=== PATIENT | male | born 1965 | race Two or more races ===

== ENCOUNTER 2020-10-27 19:52 | Inpatient (IN) | payer OTHER ==
[~2020-10-27] VITALS: Ht 165.1 cm; Wt 90.8 kg
[2020-10-27 20:26] LABS: Basophils # (auto) 0 10 ^3/uL (0-0.2); Basophils % (auto) 0.7 % (0.0-2.0); Eosinophils # (auto) 0.5 10 ^3/uL (0-0.8); Eosinophils % (auto) 6.4 % (0.0-7.0); Hematocrit 40.7 % (41.0-53.0); Hemoglobin 13.7 g/dL (13.5-17.5); Lymphocytes # (auto) 1.2 10 ^3/uL (0.4-5.4); Lymphocytes % (auto) 16.6 % (10.0-50.0); Mean Corpuscular Hemoglobin 31.2 pg (28.0-32.0); Mean Corpuscular Hgb Conc. 33.6 g/dL (32.0-36.0); Monocytes # (auto) 0.6 10 ^3/uL (0-1.3); Neutrophils # (auto) 4.9 10 ^3/uL (1.6-8.6); Neutrophils % (auto) 68.3 % (37.0-80.0); Nucleated Red Blood Cells % 0.1 %; Red Blood Cells 4.38 10^6/uL (4.5-5.90); Red Cell Distribution Width 14.7 % (11.8-14.3); White Blood Cell 7.1 10^3/uL (4.4-10.8)
[2020-10-27] MEDS ORDERED: methylPREDNISolone SOD SUCC 125 MG/2 ML VL IV ONE (20:30)
[2020-10-27] MEDS ORDERED: IPRATROPIUM BROM 0.5 MG/2.5ML INH SOL NEB ONE (20:30)
[2020-10-27] MEDS ORDERED: ALBUTEROL SULF 2.5 MG/0.5ML(0.5%) NEB SOLN NEB ONE (20:30)
[2020-10-27 20:41] LABS: Albumin 3.5 g/dL (3.4-5.0); Calcium 8.3 mg/dL (8.5-10.1); Potassium 4.1 mmol/L (3.5-5.1)
[2020-10-27 20:43] LABS: BUN/Creatinine Ratio 16.3
[2020-10-27 20:44] LABS: INR 1.08 (0.9-1.15); Partial Thromboplastin Time 26.3 sec (23.0-31.2)
[2020-10-27 20:48] LABS: Bilirubin, Total 0.5 mg/dL (0.2-1.0); Total Protein 7.4 g/dL (6.4-8.2)
[2020-10-27] MEDS ORDERED: NITROGLYCERIN 0.4 MG SL TAB SL PRN (21:00)
[2020-10-27] MEDS ORDERED: MORPHINE SULFATE INJECTION 2 MG/ML SYRG IV PRN (21:00)
[2020-10-27] MEDS ORDERED: ONDANSETRON HCL 4 MG/2 ML VIAL IV PRN (21:00)
[2020-10-27] MEDS ORDERED: TEMAZEPAM 15 MG CAP PO PRN (21:00)
[2020-10-27] MEDS ORDERED: FUROSEMIDE 40 MG/4 ML VIAL ONE (22:30)
[2020-10-27] MEDS ORDERED: FUROSEMIDE 40 MG/4 ML VIAL IV ONE (22:30)
[2020-10-27] MEDS: methylPREDNISolone SOD SUCC 40 MG/ML VL IV SCH (22:33)
[2020-10-27] MEDS: CARVEDILOL 12.5 MG TAB PO SCH (22:35)
[2020-10-27 22:50] VITALS: BP 138/106
[2020-10-28] MEDS: IPRATROPIUM BROM 0.5 MG/2.5ML INH SOL NEB PRN ×3 (00:51→19:41)
[2020-10-28] MEDS: ALBUTEROL SULF 2.5 MG/0.5ML(0.5%) NEB SOLN NEB PRN ×3 (00:51→19:41)
[2020-10-28] MEDS: ACETAMINOPHEN 325 MG TAB PO PRN ×2 (01:12→08:33)
[2020-10-28 05:20] VITALS: BP 114/78
[2020-10-28] MEDS: FUROSEMIDE 20 MG/2 ML VIAL IV SCH ×2 (05:31→18:42)
[2020-10-28] MEDS ORDERED: FUROSEMIDE 40 MG TAB PO SCH (06:00)
[2020-10-28 07:05] LABS: Basophils # (auto) 0 10 ^3/uL (0-0.2); Basophils % (auto) 0.2 % (0.0-2.0); Eosinophils # (auto) 0 10 ^3/uL (0-0.8); Hematocrit 40.6 % (41.0-53.0); Hemoglobin 13.6 g/dL (13.5-17.5); Lymphocytes # (auto) 0.3 10 ^3/uL (0.4-5.4); Lymphocytes % (auto) 4.2 % (10.0-50.0); Mean Corpuscular Hemoglobin 30.9 pg (28.0-32.0); Mean Corpuscular Hgb Conc. 33.5 g/dL (32.0-36.0); Mean Corpuscular Volume 92.1 fL (80.0-100.0); Monocytes # (auto) 0.1 10 ^3/uL (0-1.3); Monocytes % (auto) 0.8 % (0.0-12.0); Neutrophils # (auto) 5.9 10 ^3/uL (1.6-8.6); Neutrophils % (auto) 94.8 % (37.0-80.0); Nucleated Red Blood Cells % 0.1 %; Red Blood Cells 4.41 10^6/uL (4.5-5.90); Red Cell Distribution Width 14.6 % (11.8-14.3); White Blood Cell 6.2 10^3/uL (4.4-10.8)
[2020-10-28 07:08] LABS: Anion Gap 6 (5-15); Blood Urea Nitrogen 31 mg/dL (7-18); Calcium 8.4 mg/dL (8.5-10.1); Carbon Dioxide 28 mmol/L (21-32); Chloride 104 mmol/L (98-107); Glucose 168 mg/dL (74-106); Potassium 3.6 mmol/L (3.5-5.1); Sodium 138 mmol/L (136-145)
[2020-10-28 07:13] LABS: BUN/Creatinine Ratio 24.4; GFR African American 76 mL/min; GFR Non-African American 63 mL/min
[2020-10-28 09:00] VITALS: BP 138/94
[2020-10-28] MEDS: CARVEDILOL 12.5 MG TAB PO SCH ×3 (10:24→22:00)
[2020-10-28] MEDS: LOSARTAN POTASSIUM 50 MG TAB PO SCH (10:24)
[2020-10-28] MEDS: methylPREDNISolone SOD SUCC 40 MG/ML VL IV SCH ×2 (10:24→21:25)
[2020-10-28] MEDS: PANTOPRAZOLE 40 MG TAB PO SCH (10:24)
[2020-10-28] MEDS ORDERED: HYDROcodone-ACET 5/325MG TAB PO PRN (12:30)
[2020-10-28 13:00] VITALS: BP 116/62
[2020-10-28 17:00] VITALS: BP 113/70
[2020-10-28 20:50] LABS: Urine Bacteria NONE SEEN /hpf (None Seen); Urine Blood Negative /uL (Negative); Urine Specific Gravity 1.016 (1.001-1.035); Urine WBC <1 /hpf (0 - 3)
[2020-10-28 22:00] VITALS: BP 110/65
[2020-10-28] MEDS ORDERED: guaiFENesin-DM 100/10mg/5ml SYR PO PRN (23:00)
[2020-10-29 05:00] VITALS: BP 116/65
[2020-10-29] MEDS: FUROSEMIDE 20 MG/2 ML VIAL IV SCH (05:55)
[2020-10-29 07:45] LABS: Hematocrit 37.3 % (41.0-53.0); Hemoglobin 12.5 g/dL (13.5-17.5); Mean Corpuscular Hemoglobin 31.1 pg (28.0-32.0); Mean Corpuscular Hgb Conc. 33.6 g/dL (32.0-36.0); Mean Corpuscular Volume 92.5 fL (80.0-100.0); Red Blood Cells 4.03 10^6/uL (4.5-5.90); Red Cell Distribution Width 14.3 % (11.8-14.3); White Blood Cell 13.2 10^3/uL (4.4-10.8)
[2020-10-29 07:49] LABS: Basophils % (manual) 0 (0.0-2.0); Blast Cells 0; Eosinophils % (manual) 0 (0-7); Metamyelocytes % 0; Myelocytes % 0; Promyelocytes % 0; Reactive Lymphocytes 0
[2020-10-29 07:56] LABS: Chloride 102 mmol/L (98-107); Potassium 3.8 mmol/L (3.5-5.1); Sodium 138 mmol/L (136-145)
[2020-10-29 08:09] LABS: Alanine Aminotransferase 26 U/L (16-61); Albumin 3.2 g/dL (3.4-5.0); Alkaline Phosphatase 75 U/L (45-117); Anion Gap 6 (5-15); Aspartate Aminotransferase 16 U/L (15-37); BUN/Creatinine Ratio 24.6; Bilirubin, Total 0.7 mg/dL (0.2-1.0); Blood Urea Nitrogen 30 mg/dL (7-18); Calcium 8.1 mg/dL (8.5-10.1); Carbon Dioxide 30 mmol/L (21-32); GFR African American 80 mL/min; GFR Non-African American 66 mL/min; Glucose 155 mg/dL (74-106); Total Protein 6.6 g/dL (6.4-8.2)
[2020-10-29 09:00] VITALS: BP 108/54
[2020-10-29] MEDS: methylPREDNISolone SOD SUCC 40 MG/ML VL IV SCH (09:02)
[2020-10-29] MEDS: CARVEDILOL 12.5 MG TAB PO SCH (09:03)
[2020-10-29] MEDS: PANTOPRAZOLE 40 MG TAB PO SCH (09:04)
[2020-10-29] MEDS: LOSARTAN POTASSIUM 50 MG TAB PO SCH (09:04)
[2020-10-29 10:34] LABS: Band Neutrophils % (manual) 6; Lymphocytes % (manual) 2 (10.0-50.0); Monocytes % (manual) 2 (0-12)
[2020-10-29 13:00] VITALS: BP 95/57
[2020-10-29] MEDS ORDERED: FURO1TAB31 PO (16:02)
[2020-10-29] MEDS ORDERED: CAR125T PO (16:02)
[2020-10-29] MEDS ORDERED: LOSA-39 PO (16:02)
[2020-10-29] MEDS ORDERED: ALBU108A5 IN (16:03)
[2020-10-29 17:04] VITALS: BP 110/62
[2020-11-23] MEDS ORDERED: ASPI-378 PO (13:11)
[2020-11-23] MEDS ORDERED: ATOR20TA PO (13:11)
[2020-11-23] MEDS ORDERED: SACU1TAB PO (13:12)
[2020-11-24] MEDS ORDERED: CAR125T PO (11:38)
[2020-11-24] MEDS ORDERED: FURO1TAB31 PO (11:38)
[2020-11-24] MEDS ORDERED: ALBUAER3 IN (11:38)
== END 2020-10-29 17:25 | disposition home or self-care (01) | DRG 194 ==
LOC: ER 19:52 → TELE 20:57 → TELE-WESTW 22:40
PROVIDERS: ADMIT Nurse Practitioner; ATTEND Internal Medicine
DX: I13.0 Hypertensive heart and chronic kidney disease with heart failure and stage 1 through stage 4 chronic kidney disease, or unspecified chronic kidney disease (principal); J96.21 Acute and chronic respiratory failure with hypoxia; N17.0 Acute kidney failure with tubular necrosis; R65.10 Systemic inflammatory response syndrome (SIRS) of non-infectious origin without acute organ dysfunction; J45.901 Unspecified asthma with (acute) exacerbation; I50.43 Acute on chronic combined systolic (congestive) and diastolic (congestive) heart failure; J20.9 Acute bronchitis, unspecified; E66.9 Obesity, unspecified; T38.0X5A Adverse effect of glucocorticoids and synthetic analogues, initial encounter; Z20.822 Contact with and (suspected) exposure to COVID-19; N18.9 Chronic kidney disease, unspecified; F17.210 Nicotine dependence, cigarettes, uncomplicated; I25.10 Atherosclerotic heart disease of native coronary artery without angina pectoris; Z68.32 Body mass index [BMI] 32.0-32.9, adult; Y92.89 Other specified places as the place of occurrence of the external cause; Z82.49 Family history of ischemic heart disease and other diseases of the circulatory system; Z82.5 Family history of asthma and other chronic lower respiratory diseases; Z88.5 Allergy status to narcotic agent; R73.9 Hyperglycemia, unspecified
CPT/HCPCS: 36415; 36600; 71045; 80048; 80053; 81001; 82805; 83036; 83605; 83735; 83880; 84443; 84484; 85007; 85025; 85027; 85610; 85730; 87040; 87426; 93005; 93306; 94640; 96374; 96375; G0378; J2405

== ENCOUNTER 2020-11-20 13:30 | Inpatient (IN) | payer OTHER ==
[~2020-11-20] VITALS: Ht 165.1 cm; Wt 92.8 kg
[~2020-11-20 13:30] MED LIST: ALBU108A5 IN; CAR125T PO; FURO1TAB31 PO; LOSA-39 PO
[2020-11-20 14:07] LABS: Basophils # (auto) 0.1 10 ^3/uL (0-0.2); Basophils % (auto) 0.8 % (0.0-2.0); Eosinophils # (auto) 0.1 10 ^3/uL (0-0.8); Eosinophils % (auto) 1.5 % (0.0-7.0); Hematocrit 39.6 % (41.0-53.0); Hemoglobin 13.4 g/dL (13.5-17.5); Lymphocytes # (auto) 0.9 10 ^3/uL (0.4-5.4); Lymphocytes % (auto) 11.1 % (10.0-50.0); Mean Corpuscular Hemoglobin 31.3 pg (28.0-32.0); Mean Corpuscular Hgb Conc. 33.9 g/dL (32.0-36.0); Mean Corpuscular Volume 92.3 fL (80.0-100.0); Monocytes # (auto) 0.7 10 ^3/uL (0-1.3); Monocytes % (auto) 8.9 % (0.0-12.0); Neutrophils # (auto) 6.4 10 ^3/uL (1.6-8.6); Neutrophils % (auto) 77.7 % (37.0-80.0); Platelet Count (auto) 181 10^3/uL (140-450); Red Blood Cells 4.29 10^6/uL (4.5-5.90); Red Cell Distribution Width 14.8 % (11.8-14.3); White Blood Cell 8.2 10^3/uL (4.4-10.8)
[2020-11-20 14:24] LABS: Albumin 3.5 g/dL (3.4-5.0); Calcium 8.9 mg/dL (8.5-10.1); Potassium 4.5 mmol/L (3.5-5.1)
[2020-11-20 14:29] LABS: BUN/Creatinine Ratio 18.3; Bilirubin, Total 1.2 mg/dL (0.2-1.0); Total Protein 7.2 g/dL (6.4-8.2)
[2020-11-20] MEDS ORDERED: FUROSEMIDE 40 MG/4 ML VIAL IV ONE (14:45)
[2020-11-20 17:14] LABS: INR 1.09 (0.9-1.15); Partial Thromboplastin Time 28.7 sec (23.0-31.2)
[2020-11-20] MEDS ORDERED: ASPirin 81 mg TAB PO ONE (17:30)
[2020-11-20] MEDS ORDERED: cloNIDine HCL 0.1 MG TAB PO ONE (17:30)
[2020-11-20] MEDS ORDERED: hydrALAZINE HCL 20 MG/ML VL IV PRN ×2 (18:30→22:45)
[2020-11-20] MEDS ORDERED: MORPHINE SULF INJ 2 MG/ML SYRINGE 1ML IV PRN ×3 (18:30→22:45)
[2020-11-20] MEDS ORDERED: HYDROcodone-ACET 5/325MG TAB PO PRN (18:30)
[2020-11-20] MEDS ORDERED: NITROGLYCERIN 0.4 MG SL TAB SL PRN ×2 (18:30→22:45)
[2020-11-20] MEDS ORDERED: ALPRAZolam 0.25 MG TAB PO PRN ×2 (18:30→22:45)
[2020-11-20] MEDS ORDERED: ACETAMINOPHEN 500 MG TAB PO PRN ×2 (18:30→22:45)
[2020-11-20] MEDS ORDERED: ONDANSETRON HCL 4 MG/2 ML VIAL IV PRN ×2 (18:30→22:45)
[2020-11-20 18:44] LABS: Urine Bacteria NONE SEEN /hpf (None Seen); Urine Blood Negative /uL (Negative); Urine Specific Gravity 1.007 (1.001-1.035); Urine WBC <1 /hpf (0 - 3)
[2020-11-20 19:01] LABS: Amphetamine Screen, Urine NEGATIVE (NEGATIVE); Barbiturate Scree,Urine NEGATIVE (NEGATIVE); Benzodiazephine Screen, Urine NEGATIVE (NEGATIVE); Cannabinoid Screen, Urine NEGATIVE (NEGATIVE); Cocaine Screen, Urine NEGATIVE (NEGATIVE); Opiate Scree,Urine NEGATIVE (NEGATIVE); Phencyclidine Screen, Urine NEGATIVE (NEGATIVE)
[2020-11-20 21:20] VITALS: BP 126/91
[2020-11-20 21:23] VITALS: BP 126/91
[2020-11-20] MEDS ORDERED: CARVEDILOL 3.125 MG TAB PO SCH (22:00)
[2020-11-20] MEDS ORDERED: ATORVASTATIN 20 MG TAB PO ONE (22:45)
[2020-11-20] MEDS ORDERED: CARVEDILOL 3.125 MG TAB PO ONE (22:45)
[2020-11-20] MEDS: HYDROcodone-ACET 5/325MG TAB PO PRN (23:02)
[2020-11-21 04:29] VITALS: BP 113/83
[2020-11-21] MEDS ORDERED: FUROSEMIDE 20 MG/2 ML VIAL IV SCH (06:00)
[2020-11-21] MEDS: FUROSEMIDE 20 MG/2 ML VIAL IV SCH ×2 (06:20→18:23)
[2020-11-21] MEDS: HYDROcodone-ACET 5/325MG TAB PO PRN ×2 (08:27→16:51)
[2020-11-21 09:00] VITALS: BP 136/97
[2020-11-21] MEDS: ASPirin-EC 81 mg tab PO SCH (09:29)
[2020-11-21] MEDS: FAMOTIDINE 20 MG TAB PO SCH (09:29)
[2020-11-21] MEDS ORDERED: CARVEDILOL 3.125 MG TAB PO SCH (10:00)
[2020-11-21] MEDS ORDERED: ASPirin-EC 81 mg tab PO SCH (10:00)
[2020-11-21] MEDS ORDERED: LISINOPRIL 10 MG TAB PO SCH ×2 (10:00)
[2020-11-21] MEDS ORDERED: FAMOTIDINE 20 MG TAB PO SCH (10:00)
[2020-11-21 12:45] VITALS: BP 130/78
[2020-11-21] MEDS ORDERED: DEXTROSE (50%) 50ML SYRG IV PRN (17:00)
[2020-11-21 17:09] VITALS: BP 146/97
[2020-11-21] MEDS: ACCU-CHEK COMFORT CURVE STRIP VI SCH ×2 (18:23→21:47)
[2020-11-21] MEDS: InsuLIN REG 1unit/0.01ml Soln (100units/ml) SC SCH ×2 (18:23→21:47)
[2020-11-21 21:44] VITALS: BP 126/83
[2020-11-21] MEDS: ATORVASTATIN 20 MG TAB PO SCH (21:58)
[2020-11-21] MEDS: MORPHINE SULF INJ 2 MG/ML SYRINGE 1ML IV PRN (21:59)
[2020-11-21] MEDS: CARVEDILOL 12.5 MG TAB PO SCH ×2 (21:59→23:22)
[2020-11-21] MEDS ORDERED: ATORVASTATIN 20 MG TAB PO SCH (22:00)
[2020-11-22 05:35] VITALS: BP 127/91
[2020-11-22] MEDS: FUROSEMIDE 20 MG/2 ML VIAL IV SCH ×2 (05:38→17:22)
[2020-11-22] MEDS: InsuLIN REG 1unit/0.01ml Soln (100units/ml) SC SCH ×2 (06:33→11:30)
[2020-11-22] MEDS: ACCU-CHEK COMFORT CURVE STRIP VI SCH ×2 (06:33→11:45)
[2020-11-22 06:39] LABS: Basophils # (auto) 0.1 10 ^3/uL (0-0.2); Basophils % (auto) 0.9 % (0.0-2.0); Eosinophils # (auto) 0.5 10 ^3/uL (0-0.8); Eosinophils % (auto) 6.4 % (0.0-7.0); Hematocrit 40.7 % (41.0-53.0); Hemoglobin 13.8 g/dL (13.5-17.5); Lymphocytes % (auto) 13.4 % (10.0-50.0); Mean Corpuscular Hemoglobin 31.5 pg (28.0-32.0); Mean Corpuscular Hgb Conc. 33.9 g/dL (32.0-36.0); Mean Corpuscular Volume 92.9 fL (80.0-100.0); Monocytes # (auto) 0.6 10 ^3/uL (0-1.3); Monocytes % (auto) 8.5 % (0.0-12.0); Neutrophils # (auto) 5.1 10 ^3/uL (1.6-8.6); Neutrophils % (auto) 70.8 % (37.0-80.0); Platelet Count (auto) 194 10^3/uL (140-450); Red Blood Cells 4.38 10^6/uL (4.5-5.90); Red Cell Distribution Width 14.9 % (11.8-14.3); White Blood Cell 7.2 10^3/uL (4.4-10.8)
[2020-11-22 06:55] LABS: Albumin 3.3 g/dL (3.4-5.0); Calcium 8.4 mg/dL (8.5-10.1); Potassium 4.4 mmol/L (3.5-5.1)
[2020-11-22 07:00] LABS: BUN/Creatinine Ratio 23.1
[2020-11-22 09:00] VITALS: BP 132/80
[2020-11-22] MEDS: CARVEDILOL 12.5 MG TAB PO SCH ×2 (09:22→22:02)
[2020-11-22] MEDS: ASPirin-EC 81 mg tab PO SCH (09:23)
[2020-11-22] MEDS: FAMOTIDINE 20 MG TAB PO SCH (09:23)
[2020-11-22] MEDS: HYDROcodone-ACET 5/325MG TAB PO PRN ×2 (09:24→16:23)
[2020-11-22] MEDS ORDERED: LOSARTAN POTASSIUM 50 MG TAB PO SCH (10:00)
[2020-11-22 13:00] VITALS: BP 108/77
[2020-11-22 17:12] VITALS: BP 154/58
[2020-11-22] MEDS: MORPHINE SULF INJ 2 MG/ML SYRINGE 1ML IV PRN (19:43)
[2020-11-22 22:00] VITALS: BP 142/109
[2020-11-22] MEDS: ATORVASTATIN 20 MG TAB PO SCH (22:02)
[2020-11-23 05:00] VITALS: BP 103/72
[2020-11-23 06:03] LABS: Basophils # (auto) 0.1 10 ^3/uL (0-0.2); Basophils % (auto) 1.1 % (0.0-2.0); Eosinophils # (auto) 0.5 10 ^3/uL (0-0.8); Eosinophils % (auto) 7.7 % (0.0-7.0); Hematocrit 38.3 % (41.0-53.0); Hemoglobin 13.3 g/dL (13.5-17.5); Lymphocytes # (auto) 0.9 10 ^3/uL (0.4-5.4); Lymphocytes % (auto) 14.2 % (10.0-50.0); Mean Corpuscular Hgb Conc. 34.8 g/dL (32.0-36.0); Monocytes # (auto) 0.8 10 ^3/uL (0-1.3); Monocytes % (auto) 11.8 % (0.0-12.0); Neutrophils # (auto) 4.3 10 ^3/uL (1.6-8.6); Neutrophils % (auto) 65.2 % (37.0-80.0); Nucleated Red Blood Cells % 0.1 %; Platelet Count (auto) 191 10^3/uL (140-450); Red Blood Cells 4.16 10^6/uL (4.5-5.90); Red Cell Distribution Width 14.5 % (11.8-14.3); White Blood Cell 6.6 10^3/uL (4.4-10.8)
[2020-11-23 06:20] LABS: BUN/Creatinine Ratio 23.9; Calcium 8.2 mg/dL (8.5-10.1); Magnesium 2.3 mg/dL (1.6-2.6); Potassium 4.2 mmol/L (3.5-5.1)
[2020-11-23] MEDS: FUROSEMIDE 20 MG/2 ML VIAL IV SCH (06:49)
[2020-11-23 08:46] VITALS: BP 121/97
[2020-11-23] MEDS: ASPirin-EC 81 mg tab PO SCH (09:51)
[2020-11-23] MEDS: CARVEDILOL 12.5 MG TAB PO SCH ×2 (09:52→21:14)
[2020-11-23] MEDS: FAMOTIDINE 20 MG TAB PO SCH (09:52)
[2020-11-23 13:00] VITALS: BP 128/67
[2020-11-23] MEDS ORDERED: ASPI-378 PO (13:11)
[2020-11-23] MEDS ORDERED: ATOR20TA PO (13:11)
[2020-11-23] MEDS ORDERED: SACU1TAB PO (13:12)
[2020-11-23 16:48] VITALS: BP 122/75
[2020-11-23] MEDS: ATORVASTATIN 20 MG TAB PO SCH (21:15)
[2020-11-23] MEDS: SACUBITRIL-VALSARTAN 24mg/26mg TAB PO SCH (21:15)
[2020-11-23] MEDS: HYDROcodone-ACET 5/325MG TAB PO PRN (21:15)
[2020-11-23 22:00] VITALS: BP 110/75
[2020-11-24 05:00] VITALS: BP 117/71
[2020-11-24 06:47] LABS: BUN/Creatinine Ratio 28.6; Calcium 8.1 mg/dL (8.5-10.1); Potassium 3.7 mmol/L (3.5-5.1)
[2020-11-24 09:00] VITALS: BP 117/70
[2020-11-24] MEDS: SACUBITRIL-VALSARTAN 24mg/26mg TAB PO SCH (09:38)
[2020-11-24] MEDS: CARVEDILOL 12.5 MG TAB PO SCH (09:38)
[2020-11-24] MEDS: ASPirin-EC 81 mg tab PO SCH (09:38)
[2020-11-24] MEDS ORDERED: FUROSEMIDE 40 MG TAB PO SCH (10:00)
[2020-11-24] MEDS ORDERED: ALBUAER3 IN (11:38)
[2020-11-24] MEDS ORDERED: CAR125T PO (11:38)
[2020-11-24] MEDS ORDERED: FURO1TAB31 PO (11:38)
[2020-11-24 12:55] VITALS: BP 117/70
[2020-11-24 13:00] VITALS: BP 108/75
== END 2020-11-24 13:23 | disposition home or self-care (01) | DRG 194 ==
LOC: ER 13:30 → TELE-WESTW 18:24 → EDUNIT# 18:24 → ER 20:22 → TELE-WESTW 20:45
PROVIDERS: ADMIT Nurse Practitioner Acute Care; ATTEND Internal Medicine
DX: I11.0 Hypertensive heart disease with heart failure (principal); I21.A1 Myocardial infarction type 2; N17.0 Acute kidney failure with tubular necrosis; Z20.822 Contact with and (suspected) exposure to COVID-19; I50.23 Acute on chronic systolic (congestive) heart failure; I42.9 Cardiomyopathy, unspecified; E66.9 Obesity, unspecified; I25.10 Atherosclerotic heart disease of native coronary artery without angina pectoris; Z86.73 Personal history of transient ischemic attack (TIA), and cerebral infarction without residual deficits; Z82.49 Family history of ischemic heart disease and other diseases of the circulatory system; Z87.891 Personal history of nicotine dependence; Z91.14 Patient's other noncompliance with medication regimen; Z68.32 Body mass index [BMI] 32.0-32.9, adult
CPT/HCPCS: 36415; 71045; 80048; 80053; 80061; 80307; 81001; 82962; 83036; 83735; 83880; 84443; 84484; 85025; 85610; 85730; 86141; 87081; 87426; 93005; 96374; 97163; G0378